=== PATIENT | male | born 1970 | race Caucasian/White ===

== ENCOUNTER 2022-02-17 15:09 | Emergency (ER) | payer BC ==
[~2022-02-17] VITALS: Ht 175.3 cm; Wt 76.2 kg
[2022-02-17] MEDS ORDERED: MORPHINE SULFATE INJ 2 MG/ML DISP.SYRIN IV ONE (15:30)
--- NOTE | 2022-02-17 15:30 | NUR ---
[id number] M WORK, R HIP PAIN 09/07. POSSIBLE DISLOCATION W/ WALKING. IN ROOM AIR AND DENIES SOB. RESPIRATION REGULAR AND UNLABORED. ATTACHED TO THE MONITOR. WILL CONTINUE TO MONITOR THE PATIENT.
[2022-02-17] MEDS ORDERED: MORPHINE SULFATE INJ 4 MG/ML DISP.SYRIN ONE (15:45)
[2022-02-17] MEDS ORDERED: PROPOFOL 200 MG/20 ML VIAL IV ONE (16:30)
[2022-02-17] MEDS ORDERED: PROPOFOL 20 ML IV ONE (16:35)
--- NOTE | 2022-02-17 17:43 | NUR ---
The patient is alert and oriented x4. Denies pain. In room air and denies SOB. Respiration regular and unlabored. IV removed. Catheter intact and site benign. Pressure and 4x4 applied to site. No bleeding noted.Patient discharged to home in stable condition. Written and verbal after care instructions given. Patient verbalizes understanding of instruction.
[2022-02-17 17:44] VITALS: BP 127/68
== END 2022-02-17 17:44 | disposition home or self-care (01) ==
LOC: ER 15:13
DX: T84.020A Dislocation of internal right hip prosthesis, initial encounter (principal); Z96.641 Presence of right artificial hip joint; X58.XXXA Exposure to other specified factors, initial encounter; Y93.89 Activity, other specified; Y92.89 Other specified places as the place of occurrence of the external cause; Y99.8 Other external cause status
CPT/HCPCS: 27265; 73501; 73502; 96374; 99152; 99291; J2270; J2704; J7030; G0500